=== PATIENT | male | born 1960 | race Caucasian/White ===

== ENCOUNTER → 2017-07-09 | Outpatient (CLI) | payer OTHER ==
--- NOTE | 2017-07-09 09:00 | RADIOLOGY REPORT (SQ) ---
EXAM DESCRIPTION: MRI RT LOWER EXTREMITY COMBO COMPLETED DATE/TIME: 07/09/2017 8:21 am REASON FOR STUDY: METATARSALGIA, RIGHT FOOT (M77.41) M77.41 METATARSALGIA, RIGHT FOOT COMPARISON: Plain radiographs TECHNIQUE: Multiplanar fat and fluid sensitive sequences precontrast including T1, T2 fat saturated or STIR. Post contrast T1 fat saturated sequences after IV gadolinium administration. CONTRAST TYPE AND DOSE: 15 mL Prohance. RENAL FUNCTION: GFR > 60. LIMITATIONS: None. FINDINGS: MASS SIGNAL CHARACTERISTICS: LOCATION: Multiple communicating lesions plantar surface of the foot at the level of the distal secon ds to 4th metatarsals appearance. SIGNAL CHARACTERISTICS AND ENHANCEMENT PATTERN: Low signal on T1. High signal on T2. Rim enhancemen t. No generalize enhancement as would be seen with Lane's neuroma. MEASUREMENTS: Multilocular. Maximum diameter at the level of the seconds metatarsal 2.8 cm. Maximum transverse diameter 3.2 cm. MARROW SIGNAL IN ADJACENT BONES: Normal OTHER SIGNIFICANT BONE, JOINT OR SOFT TISSUE FINDINGS: No significant finding. IMPRESSION: A adventitious bursitis with fluid collections plantar surface of the distal seconds 3rd and 4th metatarsals. TECHNICAL DOCUMENTATION: JOB ID: [id number] [employer]- All Rights Reserved Reading location - IP/workstation name: [email or web address]
== END ==
LOC: RAD 07:06
PROVIDERS: ATTEND Orthopaedic Surgery
DX: M77.41 Metatarsalgia, right foot (principal); M71.571 Other bursitis, not elsewhere classified, right ankle and foot
CPT/HCPCS: 82565; 73720; A9576